=== PATIENT | female | born 1960 | race Caucasian/White ===

== ENCOUNTER 2022-08-12 19:16 | Emergency (ER) | payer BC, OTHER ==
[2022-08-12] MEDS ORDERED: methylPREDNISolone Sod Succ/PF 125 MG/2 ML VIAL ONE (21:02)
[2022-08-12] MEDS ORDERED: Famotidine/PF 20 mg/2ml Vial ONE (21:02)
[2022-08-12] MEDS ORDERED: diphenhydrAMINE 50 MG/ML VIAL ONE (21:02)
[2022-08-12] MEDS ORDERED: EPINEPHrine 1 MG/ML VIAL ONE (21:02)
== END 2022-08-12 22:56 | disposition home or self-care (01) ==
LOC: ERS 19:16
DX: T78.40XA Allergy, unspecified, initial encounter (principal); Z87.891 Personal history of nicotine dependence
CPT/HCPCS: 96372; 96374; 96375; J0171; J1200; J2930; S0028